=== PATIENT | female | born 1985 | race Caucasian/White ===

== ENCOUNTER 2020-08-13 13:42 | Outpatient (CLI) | payer OTHER, SELFPAY | END 2020-08-13 14:24 | disposition home or self-care (01) | LOC: OB 08-14 09:29 | PROVIDERS: Referring Provider Obstetrics & Gynecology; Visit Provider Obstetrics & Gynecology | DX: O36.0130 Maternal care for anti-D [Rh] antibodies, third trimester, not applicable or unspecified (principal); Z3A.32 32 weeks gestation of pregnancy | CPT/HCPCS: 59025; G0378; G0379 ==

== ENCOUNTER 2020-08-27 14:41 | Outpatient (CLI) | payer OTHER, SELFPAY ==
--- NOTE | 2020-08-27 16:14 | PM.OBTRLD ---
Visit Information Visit Information Date of evaluation: 08/27/20 Primary OB Provider: Maday Delarosa Reason for Evaluation: Yes non-stress test Comments/Additional reasons for admission: Patient sent for NST as part of scheduled monitoring for Rh sensitization. 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 Grandmother Diabetes mellitus Grandfather Cancer Grandmother Cancer Grandfather No problems noted. Social History marital status: number of children: 2 household members: spouse and children lives independently: Yes housing: house pets and animals: Yes (1 small lap dog, safe with baby.) education level: college occupational status: employed (.) current occupational exposures/hazards: No special ashley needs: No seatbelt use: always do you feel safe at home: Yes Smoking Status: Never smoker second hand exposure: No alcohol intake: former (Socially only...occasional. 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 OB Disposition: home
== END 2020-08-27 16:20 | disposition home or self-care (01) ==
LOC: OB 08-28 09:12
PROVIDERS: PCP Student in an Organized Health Care Education/Training Program; Referring Provider Obstetrics & Gynecology; Visit Provider Obstetrics & Gynecology
DX: O36.0930 Maternal care for other rhesus isoimmunization, third trimester, not applicable or unspecified (principal); Z3A.34 34 weeks gestation of pregnancy
CPT/HCPCS: 59025; G0378; G0379

== ENCOUNTER → 2020-09-12 10:44 | Outpatient (CLI) | payer OTHER, SELFPAY ==
[2020-09-13 11:06] LABS: Strep Grp B PCR POS for Grp B Strep
== END ==
PROVIDERS: PCP Student in an Organized Health Care Education/Training Program; Visit Provider Obstetrics & Gynecology
DX: Z34.83 Encounter for supervision of other normal pregnancy, third trimester (principal); Z3A.36 36 weeks gestation of pregnancy
CPT/HCPCS: 87653

== ENCOUNTER 2020-09-12 11:08 | Outpatient (CLI) | payer OTHER, SELFPAY | END 2020-09-12 11:41 | disposition home or self-care (01) | LOC: LABOR 11:27 → OB 09-13 08:41 | PROVIDERS: PCP Student in an Organized Health Care Education/Training Program; Referring Provider Obstetrics & Gynecology; Visit Provider Obstetrics & Gynecology | DX: O36.0930 Maternal care for other rhesus isoimmunization, third trimester, not applicable or unspecified (principal); Z3A.36 36 weeks gestation of pregnancy | CPT/HCPCS: 59025; 87653; G0378; G0379 ==

== ENCOUNTER 2020-09-24 12:06 | Outpatient (CLI) | payer OTHER, SELFPAY | END 2020-09-24 13:02 | disposition home or self-care (01) | LOC: OB 15:30 | PROVIDERS: PCP Student in an Organized Health Care Education/Training Program; Referring Provider Obstetrics & Gynecology; Visit Provider Obstetrics & Gynecology | DX: O36.0930 Maternal care for other rhesus isoimmunization, third trimester, not applicable or unspecified (principal); O09.523 Supervision of elderly multigravida, third trimester; Z3A.38 38 weeks gestation of pregnancy | CPT/HCPCS: 59025; G0378; G0379 ==

== ENCOUNTER → 2020-09-28 11:02 | Outpatient (CLI) | payer OTHER, SELFPAY ==
[2020-09-28 11:28] LABS: COVID19 -Nasal RAPID Negative (Negative)
== END ==
PROVIDERS: PCP Student in an Organized Health Care Education/Training Program; Visit Provider Specialist
DX: Z20.822 Contact with and (suspected) exposure to COVID-19 (principal); Z01.812 Encounter for preprocedural laboratory examination
CPT/HCPCS: 87635

== ENCOUNTER 2020-09-28 11:11 | Outpatient (CLI) | payer OTHER, SELFPAY | END 2020-09-28 11:42 | disposition home or self-care (01) | LOC: OB 10-02 07:34 | PROVIDERS: PCP Student in an Organized Health Care Education/Training Program; Referring Provider Obstetrics & Gynecology; Visit Provider Obstetrics & Gynecology | DX: O36.0930 Maternal care for other rhesus isoimmunization, third trimester, not applicable or unspecified (principal); Z20.822 Contact with and (suspected) exposure to COVID-19; Z3A.38 38 weeks gestation of pregnancy; O09.523 Supervision of elderly multigravida, third trimester | CPT/HCPCS: 59025; 87635; G0378; G0379 ==

== ENCOUNTER 2020-10-01 05:43 | Inpatient (IN) | payer OTHER, SELFPAY ==
[2020-10-01] VITALS (7 sets, daily range): BP systolic 83–111; BP diastolic 47–74; PULSE 78–83; RESP 13–15; TEMP 36.6; O2SAT 98–99
--- NOTE | 2020-10-01 | PATH_ITS ---
[facility] Accession Number: [id number] . 01 Material submitted: . fallopian tube - BILATERAL FALLOPIAN TUBE SEGMENTS . 02 Diagnosis: Bilateral Fallopian Tube Segments, Bilateral Tubal Ligation: Segments of bilateral fallopian tubes. No evidence of neoplasm. MRV 10/03/2020 1424 Local . 02 Electronically signed: . Bimal Akhtar MD, PhD, Pathologist NPI- [id number] . 01 Gross description: . The specimen is received in formalin, labeled bilateral fallopian tube segments and consists of two fallopian tube segments measuring 1.0 cm in length x 0.5 cm in diameter and 1.6 cm in length x 0.7 cm in diameter. The serosa is pink-purple and smooth. Sectioning reveals a mcmullen-pink mucosa and a stellate lumen measuring 0.3 cm in diameter. The fallopian tube segments are serially sectioned and entirely submitted in cassettes A1-A2. ([id number]) /[facility] 10/02/2020 1751 Local . 02 Microscopic: . Complete cross-sections of fallopian tube are seen from each tubular structure submitted. . 02 Pathologist provided ICD-10: Z30.2 . 02 CPT . 180485 Performed at: 01 [facility] [address], [place], [place] [id number] MD Wilver Phoenix MD Phone: [phone] Performed at: 02 [facility] [address] [place], [place] [id number] MD Susan Liang MD Phone: [phone]
[2020-10-01 06:40] LABS: Add Manual Diff / Slide Review NO; Basophils Absolute Auto 100 /uL (0-100); Basophils Percent Auto 0.7 % (0-2); Eosinophils Absolute Auto 100 /uL (0-450); Hematocrit 38.5 % (36-46); Hemoglobin 12.8 g/dL (12.0-16.0); Lymphocytes Absolute Auto 2100 /uL (1100-4500); Lymphocytes Percent Auto 21.4 % (25-40); Mean Corpuscular HGB Conc 33.3 % (30-36); Mean Corpuscular Hemoglobin 30.1 PG (26-34); Mean Corpuscular Volume 90.2 fL (80-100); Monocytes Absolute Auto 600 /uL (0-900); Monocytes Percent Auto 6.5 % (3-14); Neutrophils Absolute Auto 6900 /uL (1500-7000); Neutrophils Percent Auto 70.4 % (50-75); Platelet Count 179 X10^3/uL (150-400); Red Blood Cell Count 4.27 X10^6/uL (4.0-5.2); Red Cell Distribution Width 15.3 % (11.6-14.8); White Blood Cell Count 9.8 X10^3/uL (4.5-11.0)
[2020-10-01] MEDS: LACTATED RINGERS 1,000 ML 42 ML IV ×3 (07:00→09:27)
--- NOTE | 2020-10-01 07:35 | P.HPOB_ITS ---
OB HPI Date/Time Date of admission: 10/01/20 Date Patient Seen: 10/01/20 Time Patient Seen: 07:35 History of Present Condition Chief complaint: REPEAT W/BTL : 3 Para: 2 Estimated Gestational Age (weeks): 39 Narrative: Anny Mendoza is a 35 year old female 3 para 2 at 39 weeks gestation who is scheduled for repeat section and bilateral tubal ligation. She has 2 prior sections and desires permanent sterilization. 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 Grandmother Diabetes mellitus Grandfather Cancer Grandmother Cancer Grandfather No problems noted. Social History marital status: number of children: 2 household members: spouse and children lives independently: Yes housing: house pets and animals: Yes (1 small lap dog, safe with baby.) education level: college occupational status: employed (.) current occupational exposures/hazards: No special ashley needs: No seatbelt use: always do you feel safe at home: Yes Smoking Status: Never smoker second hand exposure: No alcohol intake: former (Socially only...occasional. 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.) frequency: 3-4 times per week Meds Home Medications and Allergies Home Medications Medication Instructions Recorded Confirmed Type acetaminophen 325 mg capsule 650 mg PO Q6H PRN 06/27/20 10/01/20 History prenat.vits,hemanth,shf-xnow-aardq 1 tab PO DAILY 06/27/20 10/01/20 History pyridoxine (vitamin B6) 50 mg 50 mg PO DAILY 06/29/20 10/01/20 History capsule Allergies Allergy/AdvReac Type Severity Reaction Status Date / Time No Known Drug Allergies Allergy Verified 09/12/20 10:30 Exam Vital Signs (past 8 hours): - 10/01/20 06:09 Blood Pressure 111/74 Narrative Exam Narrative: HEENT: No thyromegaly, no anterior cervical or supraclavicular lymphadenopathy. Lungs:Clear to auscultation bilaterally, no wheezes. Cardiovascular: Regular rate and rhythm, no murmurs, rubs, or gallops. Abdomen: Well-healed Pfannenstiel scars. No hepatosplenomegaly. No masses palpable. Fundal height: 39 cm, estimated weight 7-1/2 lb Extremities: 1+ edema, negative Homans, 1+ DTRs Objective Labs Result Diagrams: 10/01/20 06:35 Labs: Laboratory Results - last 24 hr 10/01/20 06:35 WBC 9.8 RBC 4.27 Hgb 12.8 Hct 38.5 MCV 90.2 MCH 30.1 MCHC 33.3 RDW 15.3 H Plt Count 179 Neut % (Auto) 70.4 Lymph % (Auto) 21.4 L Sequoyah % (Auto) 6.5 Eos % (Auto) 1.0 L Baso % (Auto) 0.7 Neut # (Auto) 6900 Lymph # (Auto) 2100 [place]oyah # (Auto) 600 Eos # (Auto) 100 Baso # (Auto) 100 Assessment and Plan Assessment and Plan Assessment and Plan narrative: Assessment: 35-year-old 3 para 2 at 39 weeks gestation with 2 prior section Anti-D sensitization Desires permanent sterilization Plan: Repeat section and bilateral tubal ligation Time Spent with Patient Total time spent with greater than 50% in coordination of care (as documented) at patient's floor/unit and/or counseling patient:: 15-24 minutes
--- NOTE | 2020-10-01 07:39 | PM.PREOP ---
Pre-operative Note COVID-19 COVID-19 status: Negative Result date/Date tested (Pos, Neg/Pending): 09/28/20 Interval Note History & Physical reviewed/Exam performed by Physician: Yes Changes to H&P: No H&P completed within 30 days and has changed as indicated here:: 10/01/20
[2020-10-01] MEDS: CEFAZOLIN 2 GM/100 ML FROZ.PIGGY IV (07:48)
--- NOTE | 2020-10-01 08:28 | SUR.OPER ---
Supine on Padded OR bed, head on pillow, safety belt at thigh, arms secured on padded arm boards at <90 degrees abduction. Bump under right buttock. Legs uncrossed, tape over blanket to lower legs.
--- NOTE | 2020-10-01 08:33 | SUR.OPER ---
Viable male delivered at 0821. Cord blood and placenta sent with L&D nurse.
--- NOTE | 2020-10-01 09:17 | PM.GYNOP.1 ---
Operative Date/Time/Diagnoses Date of procedure: 10/01/20 Time of procedure: 09:17 Pre-op diagnosis: 39 weeks gestation Previous C section x 2 Anti-d sensitization Post-op diagnosis: same Procedure & Clinicians Procedure: Procedures Operation Date: 10/01/20 07:45 Actual Procedures Side Surgeon p Section with Bilateral Tubal Ligation Maday Delarosa MD Indications: 39 weeks gestation Previous C section x 2 Anti-D sensitization Surgeon: Maday Delarosa Cna Ltc: Brielle Shelton Anesthesia Type: Spinal Operative Notes Findings: Live male Normal uterus, tubes and ovaries Closure Type: primary Specimen(s): portion of left tube, portion of right tube and other (Placenta, cord bloods) Applied: catheter (To continuous drainage) Estimated blood loss (mL): 300 Blood products transfused: none Procedure in detail: The patient was taken to the operating room where she was placed in the seated position. Spinal anesthesia with Duramorph was administered. The patient was then placed in the dorsal supine position with a leftward tilt. She was prepped and draped in the usual sterile fashion. A timeout was performed. After spinal analgesia was found to be adequate, a Pfannenstiel skin incision was made through the previous incision and carried through to the underlying layer fascia. The fascia was nicked in the midline, and the incision extended bilaterally with the [place] scissors. The superior aspect of the fascial incision was grasped with a [place] clamps, elevated, and the underlying rectus muscles dissected off sharply and bluntly. Attention was then turned to the inferior aspect of this incision which in a similar fashion was grasped with a [place] clamps, elevated, and the underlying rectus muscles dissected off sharply and bluntly. The rectus muscles were in the midline. The peritoneum was identified, grasped between 2 hemostats, and entered sharply with the Metzenbaum scissors. This incision was extended superiorly and inferiorly with good visualization of the bladder. The bladder blade was inserted. The vesicouterine peritoneum was identified, grasped with the pickup, and entered sharply with the Metzenbaum scissors. This incision was extended bilaterally, and the bladder flap was created digitally. The bladder blade was reinserted. The lower uterine segment was incised in a transverse fashion with the scalpel. Upon entering the amniotic sac there was moderate amount of clear amniotic fluid. The infant's head was delivered with vacuum assistance. The nose and mouth were suctioned with bulb suction. The remainder of the body delivered without difficulty. The cord was double clamped and cut. The was handed off to waiting RN and RT. The placenta was delivered manually. The uterus was cleared of all clots and debris. The uterine incision was repaired with #1 chromic in a running interlocking fashion, and a second layer the same suture was used for an imbricating layer. Hemostasis was achieved. The tubes and ovaries were examined and were found to be normal. The gutters were cleared of all clots and debris. The bladder flap was reapproximated using 2-0 Vicryl in a running fashion. The parietal peritoneum was closed using 2-0 Vicryl in a running fashion. The fascia was reapproximated using 0 Vicryl in a running fashion. The subcutaneous layer was copiously irrigated with warm normal saline. 5 simple interrupted sutures of 3-0 Vicryl were placed to reapproximate the subcutaneous layer. The skin was closed with 4-0 undyed Vicryl in a subcuticular fashion. Steri-Strips were placed. An Aquacell dressing was placed. The uterus was expressed of a small amount of old blood. Sponge, lap, and instrument counts were correct x-2. The patient tolerated the procedure well, and was taken to PACU in stable condition. The medical research assistant during this procedure retracted while the fascia was being entered and did the opposite side of the fascia. They retracted with a bladder blade and the [place] retractor while getting into the peritoneum and the uterus. They assisted with delivery of the infant by giving fundal pressure. They assisted with closure by retracting and following with the suture. They closed half of the fascia on the contralateral side. They retracted in the subcutaneous layer well putting in interrupted sutures. The medical research assistant was vital to this procedure. Complications: none Post-operative Condition: stable Disposition: PACU Plan for aftercare: To the Center after recovery
--- NOTE | 2020-10-01 10:00 | SUR.PHASEI ---
BP low. Dr Rocha aware. Dr Rocha aware. Report to Anny. Patient transferred and left in stable condition.
[2020-10-01] MEDS: LACTATED RINGERS 1,000 ML 100 ML IV ×2 (10:45→19:51)
[2020-10-01] MEDS: KETOROLAC 30 MG/ML VIAL IV ×2 (14:51→20:51)
[2020-10-01 17:01] LABS: Hepatitis B Surface Antigen NEGATIVE s/c (NEGATIVE)
[2020-10-01] MEDS: diphenhydrAMINE 25 MG TABLET PO (19:53)
[2020-10-02] MEDS: KETOROLAC 30 MG/ML VIAL IV (02:57)
[2020-10-02 06:17] LABS: Hematocrit 35.8 % (36-46); Hemoglobin 11.9 g/dL (12.0-16.0)
[2020-10-02] MEDS: PRENATAL VIT,CALC/IRON/FOLIC 1 TABLET 1 TAB PO (08:50)
[2020-10-02] MEDS: IBUPROFEN 600 MG TABLET PO ×2 (11:28→17:34)
[2020-10-02] MEDS: ACETAMINOPHEN 325 MG TABLET 650 MG PO ×2 (11:28→21:46)
[2020-10-02] MEDS: RHO(D) IMMUNE GLOBULIN 1,500 UNIT SYRINGE 1500 UNIT IM (15:23)
[2020-10-02] MEDS: OXYCODONE IR 5 MG TABLET PO ×2 (17:35→21:45)
--- NOTE | 2020-10-02 18:12 | PM.OBPN.1 ---
Subjective - OB Subjective Patient comments: no complaints, pain well controlled, incisional pain (Slight), tolerating diet and flatus present baby status: doing well and nursing well [place] feeding status: exclusively breast feeding Date Patient Seen: 10/02/20 Time Patient Seen: 18:12 Interval history: Postop day # 1 status post repeat low-transverse section and bilateral tubal ligation Exam Vital Signs (past 8 hours): Oxygen Delivery Method Room Air Oxygen Flow Rate 0 Narrative Exam Narrative: Generally: Patient is sitting up in bed, nursing infant, no acute distress Lungs: Clear to auscultation bilaterally Cardiovascular: Regular rate and rhythm Fundus: Firm at U +1 Incision: Clean dry and intact with Aquacel dressing Extremities: 1+ edema, negative Homans Objective Labs Result Diagrams: 10/02/20 05:26 Labs: Laboratory Results - last 24 hr 10/02/20 10/02/20 05:26 05:26 Hgb 11.9 L Hct 35.8 L Maternal Bleed Negative Assessment & Plan Plan day: 1 plan OB: routine postop care Time Spent With Patient Time: Total time spent is greater than 50% in coordination of care (as documented) at patient's floor/unit and/or counseling patient: Time with patient: 15-24 minutes
[2020-10-02] MEDS: LANOLIN OINT 7 GM 1 APPLIC TOP (21:45)
[2020-10-02 21:46] VITALS: TEMP 36.5
[2020-10-03] MEDS: IBUPROFEN 600 MG TABLET PO ×2 (00:48→06:30)
[2020-10-03] MEDS: ACETAMINOPHEN 325 MG TABLET 650 MG PO (03:30)
[2020-10-03] MEDS: OXYCODONE IR 5 MG TABLET PO (03:31)
[2020-10-03 08:00] VITALS: BP 100/68; PULSE 78; RESP 17; TEMP 36.8
--- NOTE | 2020-10-05 13:59 | P.DS_ITS ---
Discharge Providers Provider Date of admission: 10/01/20 05:43 Discharge Date: 10/03/20 Primary care physician: Patrick Segura Consults: 10/01/20 09:39 Consult to Principal Statistical Scientist Routine Comment: Discharge provider: Maday Delarosa MD Summary Hospital Course Date Patient Seen: 10/03/20 Time Patient Seen: 07:40 Procedures: Repeat low-transverse section Bilateral tubal ligation Spinal anesthesia Hospital Course: Patient is a 35-year-old 3 para 3 who presented on October 01, 1999 for a scheduled repeat low-transverse section and bilateral tubal ligation. She underwent this procedure without complication. She voided without catheter. She is tolerating a diet. She is ambulating without assistance. is going well. No nausea or vomiting. Peripartum Data Delivery Method: Section Laceration Description: None Episiotomy description: None Procedures: Repeat low-transverse section Bilateral tubal ligation Spinal anesthesia complications: none 1: Gender: Female Disposition of : home Status at Discharge Cognitive/behavioral status at discharge: oriented Functional status at discharge: independent ambulation Overall status at discharge: patient is progressing back to baseline Time Spent with Patient Time attestation: Total time spent providing and/or coordinating discharge services: Time spent: Less than 30 minutes Objective Labs Result Diagrams: 10/02/20 05:26 Exam Vital Signs (past 8 hours): Oxygen Delivery Method Room Air Oxygen Flow Rate 0 Narrative Exam Narrative: Generally: Patient is sitting up in bed, nursing infant, no acute distress Lungs: Clear to auscultation bilaterally Cardiovascular: Regular rate and rhythm Abdomen: Soft, nontender. Fundus: Firm at U +1 Incision: Clean dry and intact with Aquacel dressing Extremities: 1+ edema, negative Homans Discharge Plan Discharge Plan Patient Disposition: Home Provider Discharge Comment: Call with fever, chills, redness or drainage around incision or bleeding vaginally more than a pad in an hour Tylenol 650mg every 6 hours Ibuprofen 600mg every 6 hours Discharge orders & Medications Prescriptions: New ibuprofen 600 mg tablet 600 mg PO Q6H PRN (Reason: cramping/pain) Qty: 30 RF: 2 oxycodone 5 mg tablet 5 mg PO Q4H PRN (Reason: pain) Qty: 30 RF: 0 Continued prenat.vits,hemanth,ngd-iysp-sizec Tablet 1 tab PO DAILY RF: 0 acetaminophen [Tylenol] 325 mg capsule 650 mg PO Q6H PRN (Reason: Pain (Scale Score 1-3)) RF: 0 Discontinued pyridoxine (vitamin B6) 50 mg capsule 50 mg PO DAILY RF: 0 Follow up/Referrals: Maday Delarosa MD [Physician] - (1 week Aquacel, 6 wks Pt has appointment on Thursday,10/08/2020 @ 1315 and 6 weeks appt on 11/12/2020 @1430) Patrick Segura [Primary Care Provider] - Diet/Activity/Treatments Diet: Regular Activity: No heavy lifting Skin/Wound/Dressing Care Report to your healthcare provider any signs of infection, such as:: chills, fever, increased pain, unusual drainage and unusual redness Dressing: Do not remove Visit Report/Discharge Packet Instructions: DI for , DI for Prescription Opioid Use Stand Alone Forms: Discharge: Care Discharge Data Primary Care Provider: Patrick Segura
== END 2020-10-03 12:10 | disposition home or self-care (01) | DRG 785 ==
PROVIDERS: Admitting Provider Obstetrics & Gynecology; PCP Student in an Organized Health Care Education/Training Program; Referring Provider Obstetrics & Gynecology; Visit Provider Obstetrics & Gynecology
PROC: 10D00Z1 Extraction of Products of Conception, Low, Open Approach (ICD-10-PCS; CPT 59514; principal; 2020-10-01 07:45)
DX: O34.211 Maternal care for low transverse scar from previous cesarean delivery (principal); Z3A.39 39 weeks gestation of pregnancy; Z37.0 Single live birth; Z30.2 Encounter for sterilization
CPT/HCPCS: 36415; 58611; 59050; 59514; 59515; 85014; 85018; 85025; 85461; 86850; 86870; 86900; 86901; 86902; 87340; J0690; J1885; J2274; J2405; J2790